=== PATIENT | female | born 1995 | race Caucasian/White ===

== ENCOUNTER → 2018-08-17 12:55 | Outpatient (CLI) | payer BC, SELFPAY ==
[2015-02-03 21:39] VITALS: BMI 42.4
--- NOTE | 2018-08-17 13:06 | RAD_ITS ---
STUDY: X-RAY CHEST REASON FOR EXAM: Female, 23 years old. Cough x1 week TECHNIQUE: PA and lateral views of the chest. COMPARISON: 2014 FINDINGS: The lungs are clear and expanded. There is no demonstrated pleural abnormality. Normal size heart. Normal mediastinum and felicia. Normal visualized pulmonary arteries. Normal visualized aortic arch and descending thoracic aorta. Normal visualized thoracic spine. Normal visualized ribs, clavicles, and shoulders. There is no demonstrated abnormality of the visualized soft tissue structures of the upper abdomen. RAD/Chest PA and Lateral IMPRESSION: Normal x-ray examination of the chest. Electronically Signed: Mohit Estes MD at 21:43 EST , Service support ,
== END ==
PROVIDERS: Family Provider Internal Medicine; PCP Internal Medicine; Referring Provider Internal Medicine; Visit Provider Internal Medicine
DX: R05 Cough (principal)
CPT/HCPCS: 71046

== ENCOUNTER → 2020-08-16 11:01 | Outpatient (CLI) | payer BC, SELFPAY ==
[2020-08-16 12:18] LABS: Absolute Lymphocyte Count 4.36 X10^3/uL (0.83-4.51); Absolute Neutrophil Count 6.6 X10^3/uL (2.0-7.7); Basophil# 0.07 X10^3/uL; Basophil% 0.6 % (0-1); Eosinophil# 0.77 X10^3/uL; Eosinophils% 6.2 % (0-5); Hematocrit 37.6 % (37-47); Hemoglobin 12.4 g/dL (12.0-15.0); Lymphocyte # 4.36 X10^3/ul (4.0); Lymphocyte % 34.9 % (19-41); Mean Corpuscular Hgb 29.2 pg (27.0-32.0); Mean Corpuscular Volume 88.7 fL (81-99); Mean Platelet Vol. 10.8 fl (6.2-12.0); Monocyte# 0.63 X10^3/uL; NRBC Flagged by Analyzer 0 % (0-5); Neutrophil # 6.62 X10^3/uL (2.7-7.7); Neutrophil % 52.9 % (47-70); Platelet Count 363 K/mm3 (150-450); RBC Distribution Width CV 13.2 % (11.6-14.6); RBC Distribution Width SD 43.2 fl (35.1-43.9); Red Blood Count 4.24 M/mm3 (4.2-5.4); White Blood Count 12.5 K/mm3 (4.4-11.0)
[2020-08-16 13:02] LABS: Hemoglobin A1c 6.7 % (3.8-5.6)
[2020-08-16 13:21] LABS: ALB/GLOB Ratio 0.8 RATIO (0.9-2.4); AST(SGOT) 18 U/L (15-37); Alanine Aminotransfer ALT/SGPT 27 U/L (13-56); Albumin, Serum 3.1 g/dL (3.2-5.0); Alkaline Phosphatase 56 U/L (45-117); Anion Gap 13 (5-15); BUN 12 mg/dL (7-18); Calcium,Total 8.8 mg/dL (8.5-10.1); Chloride 104 mmol/L (98-107); Cholesterol 176 mg/dL (200); Creatinine, Serum 0.57 mg/dL (0.55-1.02); EST Glomerular Filtration Rate 139 mL/min (>60); Est Glom Filt Rate - Afr Amer 168 mL/min (>60); Globulin 4.1 g/dL (2.2-4.2); Glucose 129 mg/dL (74-106); High Density Lipoprotein 22 mg/dL; Potassium 3.7 mmol/L (3.5-5.1); Protein, Total 7.2 g/dL (6.4-8.2); Sodium Level 136 mmol/L (136-145); Thyroid Stim Hormone (TSH) 1.98 uIU/mL (0.358-3.74); Triglycerides 1258 mg/dL
== END ==
DX: E03.9 Hypothyroidism, unspecified (principal); F64.9 Gender identity disorder, unspecified
CPT/HCPCS: 36415; 80053; 80061; 83036; 84443; 85025

== ENCOUNTER 2022-11-13 15:35 | Emergency (ER) | payer OTHER, SELFPAY ==
[2022-11-13 15:38] VITALS: BP 123/72; PULSE 104; RESP 16; TEMP 36.4; O2SAT 95; BMI 40.3
[2022-11-13 16:00] VITALS: BP 136/122; PULSE 80; RESP 14; O2SAT 95
--- NOTE | 2022-11-13 16:10 | EDS_ITS ---
HPI History of Present Illness Chief Complaint: Chest Pain Informant: patient and parent Onset/Context/Timing Onset: Weeks (2) Activity at onset: gradual Timing: Intermittent and Lasts (Approximately 10 minutes) Quality: Positive for Sharp Location: Left Chest (With radiation to the left shoulder and left jaw) Worsened By: Nothing Relieved By: Nothing Associated Symptoms: Positive for Nausea, Diaphoresis, Dyspnea, Lightheadedness and Palpitations; Negative for Vomiting, Cough, Fever or Acid Reflux Narrative Narrative: Patient presents with chest pain that has been intermittent over the last 2 weeks. Patient states that it last for approximately 10 minutes when it comes on. Patient states the pain is sharp. Patient states the pain is over the left side of her chest and radiates to the left shoulder and left jaw. Patient states nothing makes it better nothing makes it worse. Patient describes the pain as sharp. Patient admits to some nausea but denies any vomiting with it. Patient admits to some diaphoresis and shortness of breath with the pain. Patient denies any fevers or cough. Patient admits to some lightheadedness but denies any reflux symptoms. Patient admits to some palpitations with the pain. CVD Risk Factors: Positive for Family History 1' </=55; Negative for Hypertension, Diabetes, Hypercholesterolemia or Smoking PE Risk Factors: Negative for Recent Travel/Surgery, Recent Immobilization, Prior DVT or PE, Cancer or OCP + Smoking + >/=35 [facility] Medical History (Updated 11/13/22 @ 17:[address] Tra Mcqueen, DO) History of PCOS Home Medications metformin 500 mg tablet 1,000 mg PO BID 02/03/15 [History Last Taken Unknown] atorvastatin 40 mg tablet 40 mg PO DAILY 11/13/22 [History Last Taken Unknown] hydrochlorothiazide 25 mg tablet 25 mg PO DAILY 11/13/22 [History Last Taken Unknown] levothyroxine 50 mcg tablet 50 mcg PO DAILY 11/13/22 [History Last Taken Unknown] lisinopril 20 mg tablet 20 mg PO BID 11/13/22 [History Last Taken Unknown] metoprolol succinate 25 mg capsule sprinkle, ext. release 24 hr 25 mg PO DAILY 11/13/22 [History Last Taken Unknown] sertraline 100 mg tablet 100 mg PO DAILY 11/13/22 [History Last Taken Unknown] testosterone 200 mg implant pellet 200 mg subcut QWEEK 11/13/22 [History Last Taken Unknown] Allergy/AdvReac Type Severity Reaction Status Date / Time latex Allergy Other Verified 11/13/22 15:49 red dye Allergy Hives Verified 11/13/22 15:49 Surgical History H/O total hysterectomy Social History Smoking Status: Never smoker ROS ROS ED Constitutional Constitutional ED: Reports chills; Denies fever(s) Eyes Eyes: Reports blurry vision; Denies change in vision ENT ENT ED: Denies rhinorrhea or sore throat Cardiovascular Cardiovascular: Reports as per HPI, chest pain and palpitations Respiratory/Chest Respiratory/Chest: Reports dyspnea; Denies cough Gastrointestinal Gastrointestinal: Reports nausea; Denies abdominal pain or vomiting Genitourinary Genitourinary ED: Denies dysuria or hematuria Musculoskeletal Musculoskeletal: Denies back pain or neck pain Integumentary Denies abscess or rash Neurologic Neurologic: Reports headache(s); Denies weakness Allergic/Immunologic Allergic/Immunologic ED: Denies mouth swelling or urticaria EXAM Physical Exam Const Vital Signs: 11/13/22 15:38 11/13/22 15:50 11/13/22 16:00 Temperature 97.5 F L Temperature Source Temporal Pulse Rate 104 H 80 Respiratory Rate 16 14 Respiratory Effort Normal Non-Labored Blood Pressure 123/72 H 136/122 H Blood Pressure Mean 89 126 Pulse Ox 95 95 Oxygen Delivery Method Room Air Room Air 11/13/22 16:21 11/13/22 16:50 11/13/22 17:15 Temperature Temperature Source Pulse Rate 77 82 Respiratory Rate 24 H 19 H Respiratory Effort Blood Pressure 113/77 124/80 H Blood Pressure Mean 89 94 Pulse Ox 94 93 93 Oxygen Delivery Method Room Air Room Air Room Air Positive well nourished, well developed and obese General Appearance ED: well developed and NAD Nutritional Appearance: obese HEENT normocephalic and atraumatic Eyes PERRL and EOMs intact bilaterally Neck supple and no JVD Chest Wall palpation of chest normal Resp normal respiratory effort and clear to auscultation bilaterally Effort and Inspection: Negative for respiratory distress Cardio regular rate, regular rhythm and no murmurs GI normal to inspection, nondistended, normoactive bowel sounds, soft to palpation, non-tender and non-distended Extremity normal to inspection General Extremety ED: Negative for edema or tenderness General Extremity: Negative for edema Neuro oriented x3, CN's II-XII intact bilaterally and no sensory deficits noted Sensorium / Orientation: awake and alert Motor Exam: strength 5/5 throughout Psych mental status grossly normal Heart Score History: Slightly/Non-Suspicious ECG: Normal Age: </= 45 years Risk Factors: 1 or 2 Risk Factors Score: 1 MDM MDM MDM Narrative Medical decision making narrative: Gnosis includes cardiac dysrhythmia, cardiac ischemia, pulmonary embolism, pneum onia, pneumothorax, musculoskeletal pain, and anxiety. EKG will be obtained to assess for cardiac dysrhythmia and cardiac ischemia. Chest x-ray will be obtained to assess for pneumonia and pneumothorax. CBC will be obtained to assess for anemia and leukocytosis. Basic metabolic profile will be obtained to assess for electrolyte abnormality and renal function. High-sensitivity troponin will be obtained to assess for cardiac ischemia. D-dimer will be obtained to assess for pulmonary embolism. Lab Data Attestation: I reviewed the patient's lab results. Lab results narrative: CBC was reviewed. There is a slight leukocytosis of 12.5. The remainder was essentially within normal limits. Basic metabolic profile was reviewed and was essentially within normal limits. High-sensitivity troponin was reviewed and was normal. D-dimer was reviewed and was normal. Labs: Laboratory Results - last 24 hr 11/13/22 11/13/22 11/13/22 15:55 15:55 15:55 WBC 12.5 H RBC 5.23 Hgb 15.8 H Hct 46.8 MCV 89.5 MCH 30.2 MCHC 33.8 RDW Std Deviation 41.7 RDW Coeff of Luis 12.8 Plt Count 392 MPV 10.8 Immature Gran % (Auto) 0.500 Neut % (Auto) 54.2 Lymph % (Auto) 34.8 [place] % (Auto) 5.5 Eos % (Auto) 4.4 Baso % (Auto) 0.6 Absolute Neuts (auto) 6.8 Absolute Lymphs (auto) 4.34 Nucleated RBC % 0 D-Dimer Quant (PE/DVT) < 0.27 L Sodium 135 L Potassium 4.0 Chloride 102 Carbon Dioxide 26.0 Anion Gap 7 BUN 14 Creatinine 0.71 Estim Creat Clear Calc 122.19 Est GFR (MDRD) Af Amer 129 Est GFR (MDRD) Non-Af 107 BUN/Creatinine Ratio 19.8 Glucose 160 H Calcium 9.9 Troponin I High Sens 7 Radiography Diagnostic Testing: Clinical Impression(s) from Imaging Studies Chest X-Ray 11/13/22 16:25 IMPRESSION: No radiographic evidence of acute cardiopulmonary disease. Electronically Signed: Jeffery Borrero MD at 16:59 EDT Reading Location ID and State: [facility] / [place] Tel , Service support , Portable 1 view chest x-ray was obtained. On my independent interpretation, lung benson are clear. There is normal cardiac silhouette. Bony thorax is normal. There is no acute process noted. Radiologist also interpreted the x- ray and agrees. EKG Initial EKG: Attestation: I personally reviewed and interpreted this EKG as follows: Interpretation: Sinus Rhythm (85) and No Acute Injury Pattern Comments: EKG was obtained. On my independent interpretation, it showed a normal sinus rhythm with a rate of 85. VT interval, QRS interval, and QTc intervals were all normal. [place] was normal. There are no acute ST or T wave changes. Prior EKG tracings: available for review Prior: Unchanged (01/06/2015) Treatment and Re-Evaluation :: Patient was advised of her findings. Patient is feeling better on reevaluation. Patient was instructed to follow-up with her primary care physician in 5 to 7 days. Patient understood and was agreeable with the plan. All questions were answered. Discharge Plan Triage Chief Complaint: Chest Pain ED Provider: Tra Mcqueen Dx/Rx/DC Orders Clinical Impression: Chest pain of uncertain etiology, Morbid obesity with BMI of 40.0-44.9, adult Instructions: ED Chest Pain, Uncertain Cause Prescriptions: No Action metformin 500 MG tablet 1,000 mg PO BID atorvastatin 40 mg Tablet 40 mg PO DAILY lisinopril 20 mg Tablet 20 mg PO BID sertraline 100 mg Tablet 100 mg PO DAILY levothyroxine 50 mcg Tablet 50 mcg PO DAILY hydrochlorothiazide 25 mg Tablet 25 mg PO DAILY metoprolol succinate 25 mg Capsule,Sprinkle,Er 24hr 25 mg PO DAILY testosterone 200 mg Pellet 200 mg SUBCUT QWEEK Primary Care Provider: TEJAL VARGHESE Referrals: TEJAL VARGHESE [Other] - 5-7 Days [facility] Doctor,Out of [Non-Staff] - Disposition Disposition: Home, Self Care
[2022-11-13 16:21] VITALS: O2SAT 94
[2022-11-13] MEDS: Aspirin 81 MG TAB.CHEW 324 MG PO (16:23)
--- NOTE | 2022-11-13 16:25 | RAD_ITS ---
INDICATION: chest pain EXAMINATION/TECHNIQUE: X-RAY - portable upright AP chest x-ray COMPARISON: 08/17/2018 FINDINGS: LINES/DEVICES: None. LUNGS: No consolidation, edema or effusion. No pneumothorax. MEDIASTINUM AND CARDIOVASCULAR STRUCTURES: Cardiac silhouette not enlarged. Central airways and mediastinal contour are unremarkable. BONES AND SOFT TISSUES: Unremarkable. RAD/Chest 1 View (Portable) IMPRESSION: No radiographic evidence of acute cardiopulmonary disease. Electronically Signed: Jeffery Borrero MD at 16:59 EDT ,
[2022-11-13 16:39] LABS: Absolute Lymphocyte Count 4.34 X10^3/uL (0.83-4.51); Absolute Neutrophil Count 6.8 X10^3/uL (2.0-7.7); Basophil# 0.08 X10^3/uL; Basophil% 0.6 % (0-1); Eosinophil# 0.55 X10^3/uL; Eosinophils% 4.4 % (0-5); Hematocrit 46.8 % (37-47); Hemoglobin 15.8 g/dL (12.0-15.0); Lymphocyte # 4.34 X10^3/ul (0.83-4.51); Lymphocyte % 34.8 % (19-41); Mean Corp Hgb Conc 33.8 g/dL (32-36); Mean Corpuscular Hgb 30.2 pg (27.0-32.0); Mean Corpuscular Volume 89.5 fL (81-99); Mean Platelet Vol. 10.8 fl (6.2-12.0); Monocyte# 0.69 X10^3/uL; Monocyte% 5.5 % (0-10); NRBC Flagged by Analyzer 0 % (0-5); Neutrophil # 6.76 X10^3/uL (2.7-7.7); Neutrophil % 54.2 % (47-70); Platelet Count 392 K/mm3 (150-450); RBC Distribution Width CV 12.8 % (11.6-14.6); RBC Distribution Width SD 41.7 fl (35.1-43.9); Red Blood Count 5.23 M/mm3 (4.2-5.4); White Blood Count 12.5 K/mm3 (4.4-11.0)
[2022-11-13 16:50] VITALS: BP 113/77; PULSE 77; RESP 24; O2SAT 93
[2022-11-13 16:50] LABS: Anion Gap 7 (5-15); BUN 14 mg/dL (7-18); BUN/Creat Ratio 19.8 RATIO (10-20); Calcium,Total 9.9 mg/dL (8.5-10.1); Chloride 102 mmol/L (98-107); Creatinine, Serum 0.71 mg/dL (0.55-1.02); EST Glomerular Filtration Rate 107 mL/min (>60); Est Glom Filt Rate - Afr Amer 129 mL/min (>60); Estimated Creatinine Clearance 122.19 ml/min; Glucose 160 mg/dL (74-106); Sodium Level 135 mmol/L (136-145); Troponin-I HS 7 pg/mL (3.0-54.0)
[2022-11-13 16:57] LABS: D-Dimer Quantitative (DVT/PE) < 0.27 FEU/ug/m (0.27-0.49)
[2022-11-13 17:15] VITALS: BP 124/80; PULSE 82; RESP 19; O2SAT 93
[2022-11-13 18:02] VITALS: BP 118/66; PULSE 81; RESP 16; O2SAT 96
== END 2022-11-13 18:03 | disposition home or self-care (01) ==
PROVIDERS: Emergency Provider Emergency Medicine; Visit Provider Emergency Medicine
DX: R07.9 Chest pain, unspecified (principal); E66.01 Morbid (severe) obesity due to excess calories; Z68.41 Body mass index [BMI] 40.0-44.9, adult
CPT/HCPCS: 71045; 80048; 84484; 85025; 85379; 93005; 99285; A4216

== ENCOUNTER 2023-06-24 18:25 | Emergency (ER) | payer OTHER, SELFPAY ==
[2023-06-24 18:26] VITALS: BP 93/57; PULSE 102; RESP 18; TEMP 36.1; O2SAT 96; BMI 39.8
--- NOTE | 2023-06-24 21:07 | EKG12_ITS ---
Test Reason : DYSRHYTHMIA Blood Pressure : / mmHG Vent. Rate : 089 BPM Atrial Rate : 089 BPM P-R Int : 140 ms QRS Dur : 086 ms QT Int : 340 ms P-R-T Axes : 046 -12 003 degrees QTc Int : 413 ms Normal sinus rhythm Minimal voltage criteria for LVH, may be normal variant ( R in aVL ) Nonspecific T wave abnormality Abnormal ECG Confirmed by SHAYY POMPA, MARISSA ([id number]), material expeditor DANNA MOYA ([id number]) on 07/01/2023 11:50:42 AM Referred By: Confirmed By:MARISSA LUCAS MD
[2023-06-24] MEDS: 0.9% Normal Saline (1000mL) 1,000 ML 999 ML IV ×2 (21:20→23:31)
[2023-06-24 21:21] LABS: Absolute Lymphocyte Count 4.24 X10^3/uL (0.83-4.51); Absolute Neutrophil Count 13.5 X10^3/uL (2.0-7.7); Basophil% 0.5 % (0-1); Eosinophil# 0.35 X10^3/uL; Eosinophils% 1.8 % (0-5); Hematocrit 41.7 % (37-47); Hemoglobin 14.1 g/dL (12.0-15.0); Lymphocyte # 4.24 X10^3/ul (0.83-4.51); Lymphocyte % 21.7 % (19-41); Mean Corp Hgb Conc 33.8 g/dL (32-36); Mean Corpuscular Hgb 29.7 pg (27.0-32.0); Mean Corpuscular Volume 87.8 fL (81-99); Mean Platelet Vol. 11.4 fl (6.2-12.0); Monocyte# 1.28 X10^3/uL; Monocyte% 6.5 % (0-10); NRBC Flagged by Analyzer 0 % (0-5); Neutrophil # 13.52 X10^3/uL (2.7-7.7); Platelet Count 341 K/mm3 (150-450); RBC Distribution Width CV 11.8 % (11.6-14.6); RBC Distribution Width SD 37.8 fl (35.1-43.9); Red Blood Count 4.75 M/mm3 (4.2-5.4); White Blood Count 19.6 K/mm3 (4.4-11.0)
--- NOTE | 2023-06-24 21:21 | ED.VIS.DYS ---
HPI History of Present Illness Chief Complaint: Shortness of Breath Informant: patient Narrative Narrative: Patient is a 28-year-old gender female to male presenting for worsening shortness of breath and chest discomfort. He states he has been sick since Thursday, 2 days ago. This morning he started coughing up green phlegm. Denies any fever. Is having pain in his chest with breathing. This is more diffuse. No nausea, vomiting, change in appetite or abdominal urinary symptoms. Initially went to urgent care and had a negative COVID test. There is also concern for pulmonary emboli given recent travel, strong family history and the patient is on testosterone therapy. Patient reports some mild dizziness/lightheadedness. Normally has high blood pressure even being on his blood pressure medicine (lisinopril, hydrochlorothiazide and metoprolol) and does not normally have low blood pressures below 100 systolic. 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 No swelling of the legs. No other complaints or concerns at this time [facility] Medical History History of PCOS Home Medications metformin 500 mg tablet 1,000 mg PO BID 02/03/15 [History Last Taken Unknown] atorvastatin 40 mg tablet 40 mg PO DAILY 11/13/22 [History Last Taken Unknown] hydrochlorothiazide 25 mg tablet 25 mg PO DAILY 11/13/22 [History Last Taken Unknown] levothyroxine 50 mcg tablet 50 mcg PO DAILY 11/13/22 [History Last Taken Unknown] lisinopril 20 mg tablet 20 mg PO BID 11/13/22 [History Last Taken Unknown] metoprolol succinate 25 mg capsule sprinkle, ext. release 24 hr 25 mg PO DAILY 11/13/22 [History Last Taken Unknown] sertraline 100 mg tablet 100 mg PO DAILY 11/13/22 [History Last Taken Unknown] testosterone 200 mg implant pellet 200 mg subcut QWEEK 11/13/22 [History Last Taken Unknown] amoxicillin 500 mg tablet 1,000 mg (2 x 500 mg) PO Q8H 7 days #42 tabs 06/25/23 [Rx Last Taken Unknown] azithromycin 250 mg tablet 250 mg PO DAILY #4 TABLETS 06/25/23 [Rx Last Taken Unknown] hydrocodone-acetaminophen 5-325mg 5mg-325mg 1 tab PO Q8H PRN Pain 3 days #10 TABLETS 06/25/23 [Rx Last Taken Unknown] prednisone 20 mg tablet 40 mg (2 x 20 mg) PO DAILY #10 tabs 06/25/23 [Rx Last Taken Unknown] Allergy/AdvReac Type Severity Reaction Status Date / Time latex Allergy Other Verified 06/24/23 18:26 red dye Allergy Hives Verified 06/24/23 18:26 Surgical History H/O total hysterectomy Social History Smoking Status: Never smoker ROS ROS ED Constitutional Constitutional ED: Reports chills; Denies fever(s) Eyes Eyes: Denies change in vision ENT ENT ED: Reports rhinorrhea; Denies sore throat Cardiovascular Cardiovascular: Reports chest pain; Denies palpitations Respiratory/Chest Respiratory/Chest: Reports cough, dyspnea and sputum Gastrointestinal Gastrointestinal: Denies abdominal pain, nausea or vomiting Musculoskeletal Musculoskeletal: Denies arthralgias or myalgias Integumentary Denies rash Neurologic Neurologic: Reports weakness and other Details: Mild confusion per mother ; Denies headache(s) Hematologic/Lymphatic Hematologic/Lymphatic: Denies easy bleeding or easy bruising EXAM Physical Exam Const Vital Signs: 06/24/23 18:26 06/24/23 21:02 06/24/23 21:22 Temperature 97 F L Temperature Source Temporal Pulse Rate 102 H Respiratory Rate 18 Respiratory Effort Normal Non-Labored Respiratory Pattern Blood Pressure 93/57 L Blood Pressure Mean 69 Pulse Ox 96 94 Oxygen Delivery Method Room Air Room Air 06/24/23 21:24 06/24/23 23:00 Temperature Temperature Source Pulse Rate 102 H 91 Respiratory Rate 18 16 Respiratory Effort Respiratory Pattern Normal Blood Pressure 111/54 L Blood Pressure Mean 73 Pulse Ox 97 Oxygen Delivery Method Room Air Positive well nourished and well developed General Appearance ED: well developed and NAD HEENT Reports moist mucous membranes atraumatic Eyes PERRL and EOMs intact bilaterally Neck supple and no JVD Resp normal respiratory effort Resp Narrative: Coarse breath sounds with rhonchi present Auscultation: Negative for wheezes or diminished lung sounds Cardio regular rhythm and no murmurs Rate: tachycardic GI non-tender and non-distended Extremity normal to inspection General Extremety ED: Negative for edema General Extremity: Negative for edema Neuro oriented x3 Sensorium / Orientation: alert Motor Exam: Negative for general weakness Psych mental status grossly normal Skin no wounds MDM MDM MDM Narrative Medical decision making narrative: Patient is evaluated for chest pain, cough and generalized malaise. Blood pressure is soft and mildly tachycardic on arrival but no hypoxia. While pulmonary emboli is on the differential because of recent travel and family history as well as testosterone use, clinically patient appears more to have upper respiratory illness. Lab work is remarkable for significant leukocytosis of 19.6. Creatinine is mildly elevated from his baseline at 1.10. Clinically suspect he is dehydrated. Lactate is normal at 1.8. TSH is normal and so his high-sensitivity troponin. D-dimer is less than 0.27 and I do not think a CTA of the chest is indicated. Urinalysis does show 25-50 white blood cells but no bacteria. Will send for culture. Given how high the white blood cell count and the symptoms I am concerned there could be an infection that I am missing at this point. CT of the chest abdomen pelvis is ordered as patient is continue to some continued pain to the level of the diaphragm and is not clear if it is above or below the diaphragm. CT of the chest abdomen pelvis does show developing pneumonia on the left side. This does match the patient's clinical picture. Patient is given a total of 2 L of IV fluid with improvement of blood pressure and heart rate. Is also given Tylenol in the ER. He has coarse breath sounds and given a DuoNeb with improvement of his breathing. Patient is started on azithromycin and amoxicillin to cover for commune acquired pneumonia. I will also start the patient on steroids (prednisone) for the wheezing. Has albuterol at home as inhaler as well as nebulizer. Encouraged to use it. Given return precautions encouraged follow-up with primary care doctor. Patient apparently had a negative COVID test at well now prior to arrival so this was not repeated. Patient and family agreeable with plan of care. Patient discharged home in stable and improved condition. Ambulated in the ER with no hypoxia. Patient is requesting something for pain. Has avoided NSAIDs because of GI issues. Will be given a prescription for [place] and given 1 dose prior to discharge. Lab Data Attestation: I reviewed the patient's lab results. Labs: Laboratory Results - last 24 hr 06/24/23 06/24/23 06/24/23 20:22 21:15 22:36 WBC 19.6 H RBC 4.75 Hgb 14.1 Hct 41.7 MCV 87.8 MCH 29.7 MCHC 33.8 RDW Std Deviation 37.8 RDW Coeff of Luis 11.8 Plt Count 341 MPV 11.4 Immature Gran % (Auto) 0.500 Neut % (Auto) 69.0 Lymph % (Auto) 21.7 [place] % (Auto) 6.5 Eos % (Auto) 1.8 Baso % (Auto) 0.5 Absolute Neuts (auto) 13.5 H Absolute Lymphs (auto) 4.24 Nucleated RBC % 0 D-Dimer Quant (PE/DVT) < 0.27 L Sodium 136 Potassium 3.8 Chloride 100 Carbon Dioxide 28.0 Anion Gap 8 BUN 15 Creatinine 1.10 H Estim Creat Clear Calc 78.18 Est GFR (MDRD) Af Amer 77 Est GFR (MDRD) Non-Af 64 BUN/Creatinine Ratio 13.6 Glucose 125 H Lactic Acid 1.8 Calcium 9.6 Troponin I High Sens 6 TSH 1.94 Urine Color Yellow Urine Clarity Sl. Cloudy Urine pH 6.0 Ur Specific [place] 1.020 Urine Protein 100 H Urine Glucose (UA) Normal Urine Ketones 5 H Urine Occult Blood 10 H Urine Nitrite Negative Urine Bilirubin 1 H Urine Urobilinogen Normal Ur Leukocyte Esterase 500 H Urine RBC 0 SEEN Urine WBC 25-50 SEEN Ur Squamous Epith Cells 0-5 SEEN Urine Bacteria 0 SEEN Urine Mucus 1+ Radiography Chest X-Ray - ED: 2 View, Read by ED Physician, Read by Radiologist and No Acute Disease Diagnostic Testing: Clinical Impression(s) from Imaging Studies Chest X-Ray 06/24/23 21:45 IMPRESSION: Normal x-ray examination of the chest. Electronically Signed: Thai Ballesteros MD at 22:06 EST , Chest/Abdomen/Pelvis CT 06/24/23 23:11 IMPRESSION: Normal enhanced CT chest, abdomen T pelvis examination. Electronically Signed: Sebastián Sanders MD at 0:39 EST , ADDENDUM: 06/25/2349 IMPRESSION: undefined ADDENDUM: 06/25/23100 IMPRESSION: undefined Rhythm Strip Rhythm Strip: Sinus Rhythm Rate: 89 Ectopy: None EKG Initial EKG: Attestation: I personally reviewed and interpreted this EKG as follows: Interpretation: Sinus Rhythm Comments: Normal sinus rhythm at a rate of 89 bpm Left axis deviation Minimal voltage criteria for LVH Normal ST segments Prior EKG tracings: available for review Prior: Unchanged Discharge Plan Triage Chief Complaint: Shortness of Breath ED Provider: Madison Downing Dx/Rx/DC Orders Clinical Impression: Pneumonia involving left lung, Leukocytosis, Dehydration Instructions: ED Dehydration (Adult), ED Pneumonia (Adult) Prescriptions: New azithromycin 250 mg tablet 250 mg PO DAILY Qty: 4 0RF amoxicillin 500 mg tablet 1,000 mg PO Q8H 7 Days Qty: 42 0RF prednisone 20 mg tablet 40 mg PO DAILY Qty: 10 0RF hydrocodone-acetaminophen 5-325 mg tablet 1 tab PO Q8H PRN (Reason: Pain) 3 Days Qty: 10 0RF No Action metformin 500 MG tablet 1,000 mg PO BID atorvastatin 40 mg Tablet 40 mg PO DAILY lisinopril 20 mg Tablet 20 mg PO BID sertraline 100 mg Tablet 100 mg PO DAILY levothyroxine 50 mcg Tablet 50 mcg PO DAILY hydrochlorothiazide 25 mg Tablet 25 mg PO DAILY metoprolol succinate 25 mg Capsule,Sprinkle,Er 24hr 25 mg PO DAILY testosterone 200 mg Pellet 200 mg SUBCUT QWEEK Primary Care Provider: Connor Tripp Referrals: NOT,DEFINED [Non-Staff] - Activity Restrictions/Additional Instructions: Your CT does show pneumonia in the left side of the lung. You have signs of dehydration. We will start you on steroids as well as antibiotics as I suspect having a component of reactive airway for this pneumonia. Been given a prescription for short course of pain medicine to help with the pain as you are avoiding anti-inflammatories such as ibuprofen. If your blood pressure is below 110 for the top number please hold your hydrochlorothiazide to prevent low blood pressures. Make sure you are drinking plenty of fluids. Follow-up with your primary care doctor within a week for repeat evaluation. Disposition Disposition: Home, Self Care
[2023-06-24 21:22] VITALS: O2SAT 94
[2023-06-24 21:24] VITALS: PULSE 102; RESP 18
[2023-06-24] MEDS: Ipratropium/Albuterol Sulfate 3 ML AMPUL.NEB INHALATION (21:24)
[2023-06-24 21:45] LABS: Anion Gap 8 (5-15); BUN 15 mg/dL (7-18); BUN/Creat Ratio 13.6 RATIO (10-20); Calcium,Total 9.6 mg/dL (8.5-10.1); Chloride 100 mmol/L (98-107); EST Glomerular Filtration Rate 64 mL/min (>60); Est Glom Filt Rate - Afr Amer 77 mL/min (>60); Estimated Creatinine Clearance 78.18 ml/min; Glucose 125 mg/dL (74-106); Potassium 3.8 mmol/L (3.5-5.1); Sodium Level 136 mmol/L (136-145); Thyroid Stim Hormone (TSH) 1.94 uIU/mL (0.358-3.74); Troponin-I HS 6 pg/mL (3.0-54.0)
--- NOTE | 2023-06-24 21:45 | RAD_ITS ---
STUDY: X-RAY CHEST REASON FOR EXAM: Female, 28 years old. sob TECHNIQUE: Frontal and lateral views of the chest. COMPARISON: 11/13/2022. FINDINGS: The lungs are clear and expanded. There is no demonstrated pleural abnormality. Normal size heart. Normal mediastinum and felicia. Normal visualized pulmonary arteries. Normal visualized aortic arch and descending thoracic aorta. Normal visualized thoracic spine. Normal visualized ribs, clavicles, and shoulders. There is no demonstrated abnormality of the visualized soft tissue structures of the upper abdomen. RAD/Chest PA and Lateral IMPRESSION: Normal x-ray examination of the chest. Electronically Signed: Thai Ballesteros MD at 22:06 EST ,
[2023-06-24 21:53] LABS: D-Dimer Quantitative (DVT/PE) < 0.27 FEU/ug/m (0.27-0.49)
[2023-06-24 21:59] LABS: Lactic Acid 1.8 mmol/L (0.4-1.9)
[2023-06-24 22:40] LABS: Bacteria 0 SEEN /hpf (None Seen); Red Blood Cells-Urine 0 SEEN /hpf (0-5)
[2023-06-24 22:46] LABS: Color, Urine Yellow (Yellow); Glucose, Dipstick Normal (Normal); Ketone-Dipstick 5 mg/dl (Negative); Leukocyte Esterase-Dipstick 500 /ul (Negative); Nitrite-Dipstick Negative (Negative); Occult Blood-Urine 10 /ul (Negative); Protein-Dipstick 100 mg/dl (Negative); Urine Clarity Sl. Cloudy (Clear); Urine Urobilinogen Normal (Normal)
[2023-06-24 22:47] LABS: Urine Bilirubin Dipstick 1 mg/dL (Negative)
[2023-06-24 22:51] LABS: White Blood Cells 25-50 SEEN /hpf (0-5)
[2023-06-24 22:52] LABS: Mucous, Urine 1+ /hpf (<or=2+); Squamous Epithelial Cells - UA 0-5 SEEN /hpf (5-10)
[2023-06-24 23:00] VITALS: BP 111/54; PULSE 91; RESP 16; O2SAT 97
--- NOTE | 2023-06-24 23:11 | CT_ITS ---
STUDY: CT CHEST, ABDOMEN T PELVIS WITH CONTRAST REASON FOR EXAM: Female, 28 years old. fever, pain RADIATION DOSAGE (If Supplied By Facility): CTDIvol = ( 23.21 ) mGy, DLP = ( 2591.85 ) mGycm TECHNIQUE: Transaxial imaging was performed following intravenous administration of IV 100mL Isovue-370. Individualized dose optimization techniques were used for this CT. COMPARISON: CR ChestNov 2022 FINDINGS: CHEST The lungs are normal. There is no demonstrated pleural abnormality. Normal heart and pericardium. Normal mediastinum. Normal hilar regions. Normal unenhanced pulmonary arteries. Normal aorta arch and descending thoracic aorta. Normal osseous structures. There is no demonstrated abnormality of the visualized upper abdomen. ABDOMEN The visualized lung bases are unremarkable. The visualized portions of the heart are within normal limits. Normal liver. Normal gallbladder and extrahepatic biliary system. Normal spleen. Normal pancreas. Normal bilateral adrenal glands. Normal right kidney. Normal left kidney. Normal visualized stomach. Normal small intestine. Normal colon. The appendix is visualized and appears normal. Normal abdominal aorta. Normal inferior vena cava. Normal retroperitoneum. Normal abdominal wall. Normal osseous structures. PELVIS Normal urinary bladder. Normal visualized small intestine. Normal visualized colon. There is no pelvic fluid. There is no pelvic lymphadenopathy or mass lesion. Normal visualized pelvic arteries. Normal abdominal wall. Normal osseous structures. CT/CT Chest, Abd, Pel w/Contrast IMPRESSION: Normal enhanced CT chest, abdomen T pelvis examination. Electronically Signed: Sebastián Sanders MD at 0:39 EST ,
[2023-06-24] MEDS: Acetaminophen 325 MG Tablet 650 MG PO (23:31)
[2023-06-25] MEDS: AMOXICILLIN 500 MG CAPSULE 1000 MG PO (01:07)
[2023-06-25] MEDS: Azithromycin 250 MG Tablet 500 MG PO (01:07)
[2023-06-25] MEDS: HYDROcodone Bitartrate/Apap 5/325 Tablet PO (01:19)
[2023-06-25 01:24] VITALS: BP 105/59; PULSE 79; RESP 16; O2SAT 98
== END 2023-06-25 01:25 | disposition home or self-care (01) ==
PROVIDERS: Emergency Provider Emergency Medicine; PCP Family Medicine; Visit Provider Emergency Medicine
DX: J18.9 Pneumonia, unspecified organism (principal); D72.829 Elevated white blood cell count, unspecified; E86.0 Dehydration; R42 Dizziness and giddiness; R07.9 Chest pain, unspecified; R05.9 Cough, unspecified; R53.1 Weakness
CPT/HCPCS: 71046; 71260; 74177; 80048; 81001; 83605; 84443; 84484; 85025; 85379; 87086; 87088; 93005; 94640; 96360; 96361; 99285; J7030; J7050; Q9967; A4216

== ENCOUNTER 2023-07-07 16:25 | Emergency (ER) | payer OTHER, SELFPAY ==
[2023-07-07 16:26] VITALS: BP 120/58; PULSE 89; RESP 18; TEMP 35.9; O2SAT 97; BMI 40.7
--- NOTE | 2023-07-07 17:19 | RAD_ITS ---
STUDY: X-RAY CHEST REASON FOR EXAM: Female, 28 years old. SOB TECHNIQUE: AP portable COMPARISON: None. FINDINGS: The lungs are clear and expanded. There is no demonstrated pleural abnormality. Normal size heart. Normal mediastinum and felicia. Normal visualized pulmonary arteries. Normal visualized aortic arch and descending thoracic aorta. Normal visualized thoracic spine. Normal visualized ribs, clavicles, and shoulders. There is no demonstrated abnormality of the visualized soft tissue structures of the upper abdomen. RAD/Chest 1 View (Portable) IMPRESSION: Normal x-ray examination of the chest. Electronically Signed: Hayden Urena MD at 18:01 EST ,
--- NOTE | 2023-07-07 17:33 | EKG12_ITS ---
Test Reason : Blood Pressure : / mmHG Vent. Rate : 071 BPM Atrial Rate : 071 BPM P-R Int : 144 ms QRS Dur : 092 ms QT Int : 354 ms P-R-T Axes : 035 -02 006 degrees QTc Int : 384 ms Normal sinus rhythm Minimal voltage criteria for LVH, may be normal variant ( R in aVL ) Nonspecific T wave abnormality Abnormal ECG Confirmed by SHAYY POMPA, MARISSA ([id number]), editorial writer TALAT PUTNAM ([id number]) on 07/09/2023 9:19:14 AM Referred By: Confirmed By:MARISSA LUCAS MD
--- NOTE | 2023-07-07 17:34 | EX.ED.DYSGE1 ---
HPI History of Present Illness Chief Complaint: General Illness Informant: patient and family Narrative Narrative: Patient presents with just not feeling completely well yet. He was here almost 2 weeks ago. He had extensive workup that ended up diagnosing him with pneumonia. He took azithromycin and amoxicillin. He has finished those. He is coughing his last. But he still feels a little short of breath. He feels lightheaded and just generalized weakness. He has a nonspecific intermittent dizziness. No vertigo. No focal neurologic symptoms. He does have a history of asthma but is not sure if he has been wheezing. However, when he takes his aerosol he does feel better for a while. He denies being on prednisone recently. However, when I look up his med list he did get prednisone filled on the of this month at 40 mg. [facility] Medical History History of PCOS Home Medications metformin 500 mg tablet 1,000 mg PO BID 02/03/15 [History Last Taken Unknown] atorvastatin 40 mg tablet 40 mg PO DAILY 11/13/22 [History Last Taken Unknown] hydrochlorothiazide 25 mg tablet 25 mg PO DAILY 11/13/22 [History Last Taken Unknown] levothyroxine 50 mcg tablet 50 mcg PO DAILY 11/13/22 [History Last Taken Unknown] lisinopril 20 mg tablet 20 mg PO BID 11/13/22 [History Last Taken Unknown] metoprolol succinate 25 mg capsule sprinkle, ext. release 24 hr 25 mg PO DAILY 11/13/22 [History Last Taken Unknown] sertraline 100 mg tablet 100 mg PO DAILY 11/13/22 [History Last Taken Unknown] testosterone 200 mg implant pellet 200 mg subcut QWEEK 11/13/22 [History Last Taken Unknown] amoxicillin 500 mg tablet 1,000 mg (2 x 500 mg) PO Q8H 7 days #42 tabs 06/25/23 [Rx Last Taken Unknown] azithromycin 250 mg tablet 250 mg PO DAILY #4 TABLETS 06/25/23 [Rx Last Taken Unknown] hydrocodone-acetaminophen 5-325mg 5mg-325mg 1 tab PO Q8H PRN Pain 3 days #10 TABLETS 06/25/23 [Rx Last Taken Unknown] prednisone 20 mg tablet 40 mg (2 x 20 mg) PO DAILY #10 tabs 06/25/23 [Rx Last Taken Unknown] sulfamethoxazole 800 mg-trimethoprim 160 mg tablet (Bactrim DS) 1 tab PO BID #20 tabs 07/07/23 [Rx Last Taken Unknown] Allergy/AdvReac Type Severity Reaction Status Date / Time latex Allergy Other Verified 07/07/23 16:26 red dye Allergy Hives Verified 07/07/23 16:26 Surgical History H/O total hysterectomy Social History Smoking Status: Never smoker ROS ROS ED ROS Narrative A complete review of systems was performed and is negative except as documented in the history of present illness. Some specific details below. Constitutional: No recent fevers or chills. He states he never had a fever with his illness. He did have malaise and myalgias that he still has some of that. EYE: No discharge, visual complaints, or pain. ENT: No difficulty swallowing. No swelling. No pain. No reflux symptoms. CV: Not having chest pain. No palpitations. Respiratory: See history of present illness. GI: No abdominal pain. No nausea vomiting diarrhea. No blood in stool. Appetite was down but he is eating and drinking. He is trying to drink fluids. : No frequency dysuria or hematuria. He does describe some soreness in the left flank area but it also seems to be motion related. Musculoskeletal: No recent trauma. No pains. No swelling. Skin: No rash. Nondiaphoretic. Neuro: No weakness or numbness. Endocrine: No polyuria or polydipsia. EXAM Physical Exam Narrative Exam Narrative: CONSTITUTIONAL: Patient is nontoxic in appearance. The patient looks comfortable. Work of breathing looks normal. HEENT: No notable trauma. Mucous membranes minute related by. No sinus tenderness. No indication of pain with swallowing. EYES: No conjunctival injection. No proptosis. No icterus NECK:No JVD. No stridor. CARDIOVASCULAR: Regular rate. Regular rhythm. No notable murmur. No JVD. No ectopy is noted on the monitor. RESPIRATORY: No respiratory distress. Breathing is unlabored. No wheezes. No rhonchi. No rales. No pain with a deep breath. No chest wall tenderness. Overall his pulmonary exam seems pretty normal at this point. GASTROINTESTINAL: Not distended. Bowel sounds are normal. No tenderness. No guarding. No rebound. No palpable mass. No bruit is heard. GENITOURINARY: No tenderness over the bladder. No CVA tenderness. MUSCULOSKELETAL: Atraumatic. No peripheral edema. No cord. No tenderness along the deep venous system. No asymmetry. No distended veins. NEUROLOGICAL: Patient is alert and appropriate. No focal deficit noted. SKIN: No noted rashes. No diaphoresis. PSYCHIATRIC: Patient is calm. Mood is appropriate. Const Vital Signs: 07/07/23 16:26 07/07/23 18:02 07/07/23 18:02 Temperature 96.7 F L Temperature Source Temporal Pulse Rate 89 Respiratory Rate 18 Respiratory Effort Normal Non-Labored Respiratory Pattern Normal Blood Pressure 120/58 L Blood Pressure Mean 78 Pulse Ox 97 98 Oxygen Delivery Method Room Air Room Air 07/07/23 19:00 Temperature Temperature Source Pulse Rate 77 Respiratory Rate 16 Respiratory Effort Respiratory Pattern Blood Pressure Blood Pressure Mean Pulse Ox 99 Oxygen Delivery Method Room Air MDM MDM MDM Narrative Medical decision making narrative: My independent interpretation of the patient's single view chest x-ray shows no acute infiltrative process final reading is similar. Patient's CBC shows elevated white count although it is coming down it still up above normal. Patient's electrolytes show minimally low sodium and minimally elevated creatinine. There is a slight elevation of glucose at 184. Alysis does show cloudy urine with 500 leukocyte Estrace and 25-50 white cells. I talked with the patient about the UTI. He is now saying he is not surprised because he is now saying he does have symptoms of been going on for few days. There is no CVA tenderness although there is some soreness in the left flank. Patient was on amoxicillin and azithromycin recently. We will use Bactrim and I will send a culture. We discussed reasons to return. Lab Data Attestation: I reviewed the patient's lab results. Labs: Laboratory Results - last 24 hr 07/07/23 07/07/23 17:50 18:49 WBC 14.0 H RBC 4.82 Hgb 14.5 Hct 42.7 MCV 88.6 MCH 30.1 MCHC 34.0 RDW Std Deviation 38.5 RDW Coeff of Luis 11.9 Plt Count 339 MPV 10.6 Immature Gran % (Auto) 0.400 Neut % (Auto) 63.0 Lymph % (Auto) 29.3 Denali % (Auto) 4.3 Eos % (Auto) 2.3 Baso % (Auto) 0.7 Absolute Neuts (auto) 8.8 H Absolute Lymphs (auto) 4.09 Nucleated RBC % 0 Sodium 133 L Potassium 4.1 Chloride 100 Carbon Dioxide 25.0 Anion Gap 8 BUN 22 H Creatinine 1.09 H Estim Creat Clear Calc 78.90 Est GFR (MDRD) Af Amer 78 Est GFR (MDRD) Non-Af 64 BUN/Creatinine Ratio 20.2 H Glucose 184 H Calcium 9.7 Urine Color Yellow Urine Clarity Sl. Cloudy Urine pH 5.0 Ur Specific Chapin 1.020 Urine Protein 30 H Urine Glucose (UA) Normal Urine Ketones 5 H Urine Occult Blood 10 H Urine Nitrite Negative Urine Bilirubin 1 H Urine Urobilinogen 1 H Ur Leukocyte Esterase 500 H Urine RBC 0 SEEN Urine WBC 25-50 SEEN Ur Squamous Epith Cells 0-5 SEEN Ur Renal Epithelial Cell 0-5 SEEN Urine Bacteria 0 SEEN Hyaline Casts 10-25 SEEN Urine Mucus 0 SEEN Radiography Diagnostic Testing: Clinical Impression(s) from Imaging Studies Chest X-Ray 07/07/23 17:19 IMPRESSION: Normal x-ray examination of the chest. Electronically Signed: Hayden Urena MD at 18:01 EST , EKG Initial EKG: Comments: My independent interpretation the patient's EKG shows a normal sinus rhythm with overall rate of 71. No ectopy. Nonspecific ST changes but these are similar to 24 June of this year. MD interval, QRS duration and QTc are all normal. Discharge Plan Triage Chief Complaint: General Illness ED Provider: Leo Patterson Dx/Rx/DC Orders Clinical Impression: UTI (urinary tract infection) Instructions: UTIs Understanding Prescriptions: New sulfamethoxazole-trimethoprim [Bactrim DS] 800-160 mg tablet 1 tab PO BID Qty: 20 0RF No Action metformin 500 MG tablet 1,000 mg PO BID atorvastatin 40 mg Tablet 40 mg PO DAILY lisinopril 20 mg Tablet 20 mg PO BID sertraline 100 mg Tablet 100 mg PO DAILY levothyroxine 50 mcg Tablet 50 mcg PO DAILY hydrochlorothiazide 25 mg Tablet 25 mg PO DAILY metoprolol succinate 25 mg Capsule,Sprinkle,Er 24hr 25 mg PO DAILY testosterone 200 mg Pellet 200 mg SUBCUT QWEEK azithromycin 250 mg tablet 250 mg PO DAILY Qty: 4 0RF amoxicillin 500 mg tablet 1,000 mg PO Q8H 7 Days Qty: 42 0RF prednisone 20 mg tablet 40 mg PO DAILY Qty: 10 0RF hydrocodone-acetaminophen 5-325 mg tablet 1 tab PO Q8H PRN (Reason: Pain) 3 Days Qty: 10 0RF Stand Alone Forms: ED Work / School Excuse Primary Care Provider: Care Physician,No Primary Referrals: Connor Tripp MD [Non-Staff] - 3-5 Days Disposition Disposition: Home, Self Care
[2023-07-07] MEDS: 0.9% Normal Saline (1000mL) 1,000 ML 999 ML IV (17:56)
[2023-07-07 17:58] LABS: Absolute Lymphocyte Count 4.09 X10^3/uL (0.83-4.51); Absolute Neutrophil Count 8.8 X10^3/uL (2.0-7.7); Basophil% 0.7 % (0-1); Eosinophil# 0.32 X10^3/uL; Eosinophils% 2.3 % (0-5); Hematocrit 42.7 % (37-47); Hemoglobin 14.5 g/dL (12.0-15.0); Lymphocyte # 4.09 X10^3/ul (0.83-4.51); Lymphocyte % 29.3 % (19-41); Mean Corpuscular Hgb 30.1 pg (27.0-32.0); Mean Corpuscular Volume 88.6 fL (81-99); Mean Platelet Vol. 10.6 fl (6.2-12.0); Monocyte% 4.3 % (0-10); NRBC Flagged by Analyzer 0 % (0-5); Neutrophil # 8.81 X10^3/uL (2.7-7.7); Platelet Count 339 K/mm3 (150-450); RBC Distribution Width CV 11.9 % (11.6-14.6); RBC Distribution Width SD 38.5 fl (35.1-43.9); Red Blood Count 4.82 M/mm3 (4.2-5.4)
[2023-07-07 18:02] VITALS: O2SAT 98
[2023-07-07 18:11] LABS: Anion Gap 8 (5-15); BUN 22 mg/dL (7-18); BUN/Creat Ratio 20.2 RATIO (10-20); Calcium,Total 9.7 mg/dL (8.5-10.1); Chloride 100 mmol/L (98-107); Creatinine, Serum 1.09 mg/dL (0.55-1.02); EST Glomerular Filtration Rate 64 mL/min (>60); Est Glom Filt Rate - Afr Amer 78 mL/min (>60); Glucose 184 mg/dL (74-106); Potassium 4.1 mmol/L (3.5-5.1); Sodium Level 133 mmol/L (136-145)
[2023-07-07 18:54] LABS: Bacteria 0 SEEN /hpf (None Seen); Mucous, Urine 0 SEEN /hpf (<or=2+); Red Blood Cells-Urine 0 SEEN /hpf (0-5)
[2023-07-07 18:55] LABS: Color, Urine Yellow (Yellow); Glucose, Dipstick Normal (Normal); Ketone-Dipstick 5 mg/dl (Negative); Leukocyte Esterase-Dipstick 500 /ul (Negative); Nitrite-Dipstick Negative (Negative); Occult Blood-Urine 10 /ul (Negative); Protein-Dipstick 30 mg/dl (Negative); Urine Clarity Sl. Cloudy (Clear); Urine Urobilinogen 1 mg/dl (Normal)
[2023-07-07 18:57] LABS: Urine Bilirubin Dipstick 1 mg/dL (Negative)
[2023-07-07 19:00] VITALS: PULSE 77; RESP 16; O2SAT 99
[2023-07-07 19:09] LABS: Hyaline Cast 10-25 SEEN /lpf (0-5); Renal Epithelial Cells 0-5 SEEN /hpf (0-5); Squamous Epithelial Cells - UA 0-5 SEEN /hpf (5-10); White Blood Cells 25-50 SEEN /hpf (0-5)
[2023-07-07] MEDS: Smz/Tmp Ds Tablet 1 TABLET PO (19:48)
[2023-07-07 19:51] VITALS: BP 104/69; PULSE 91; RESP 16; O2SAT 98
== END 2023-07-07 19:51 | disposition home or self-care (01) ==
PROVIDERS: Emergency Provider Emergency Medicine; Visit Provider Emergency Medicine
DX: N39.0 Urinary tract infection, site not specified (principal)
CPT/HCPCS: 71045; 80048; 81001; 85025; 87086; 87088; 87428; 93005; 96360; 96361; 99284; J7030; A4216

== ENCOUNTER 2023-07-31 15:30 | Emergency (ER) | payer OTHER, SELFPAY ==
[2023-07-31 15:31] VITALS: BP 135/79; PULSE 96; RESP 15; TEMP 36.7; O2SAT 96; BMI 41.0
--- NOTE | 2023-07-31 15:37 | RAD_ITS ---
STUDY: X-RAY CHEST REASON FOR EXAM: Female, 28 years old. SOB TECHNIQUE: PA and lateral views of the chest. COMPARISON: Comparison is made with prior study July 07, 2023. FINDINGS: The lungs are clear and expanded. Scattered calcified granulomas. There is no demonstrated pleural abnormality. Normal size heart. Normal mediastinum and felicia. Normal visualized pulmonary arteries. Normal visualized aortic arch and descending thoracic aorta. Normal visualized thoracic spine. Normal visualized ribs, clavicles, and shoulders. There is no demonstrated abnormality of the visualized soft tissue structures of the upper abdomen. RAD/Chest PA and Lateral IMPRESSION: Normal x-ray examination of the chest. Electronically Signed: Fernando Kim MD at 15:49 EST ,
--- NOTE | 2023-07-31 16:37 | EX.ED.DYSGE1 ---
HPI History of Present Illness Chief Complaint: Shortness of Breath Narrative Narrative: 28-year-old female who identifies as a male has been sick for over a month. She was seen here at that time and had a CT scan performed of the abdomen pelvis which showed no occult pneumonia. He has been on antibiotics since then. He is allergy has been on more than 1 dose of antibiotics. The patient is continually tried to call her PCP at [facility] and is referred to the emergency room every time. The patient states that his fevers are gone. The patient is not coughing up any sputum. The patient is eating and drinking normally. He is making normal urine and stool. The patient states that her biggest symptom is dizziness and when she describes as he states the room starts spinning. At times she is just sitting there and the room started spinning and other times is worse when he stands up. The patient gets nauseous when this happens and feels like she is may be going to faint. The patient states that he feels like his fingertips turn blue when this happens. No history of heart disease. No pulmonary problems. [facility] Medical History History of PCOS Home Medications metformin 500 mg tablet 1,000 mg PO BID 02/03/15 [History Last Taken Unknown] atorvastatin 40 mg tablet 40 mg PO DAILY 11/13/22 [History Last Taken Unknown] hydrochlorothiazide 25 mg tablet 25 mg PO DAILY 11/13/22 [History Last Taken Unknown] levothyroxine 50 mcg tablet 50 mcg PO DAILY 11/13/22 [History Last Taken Unknown] lisinopril 20 mg tablet 20 mg PO BID 11/13/22 [History Last Taken Unknown] metoprolol succinate 25 mg capsule sprinkle, ext. release 24 hr 25 mg PO DAILY 11/13/22 [History Last Taken Unknown] sertraline 100 mg tablet 100 mg PO DAILY 11/13/22 [History Last Taken Unknown] testosterone 200 mg implant pellet 200 mg subcut QWEEK 11/13/22 [History Last Taken Unknown] amoxicillin 500 mg tablet 1,000 mg (2 x 500 mg) PO Q8H 7 days #42 tabs 06/25/23 [Rx Last Taken Unknown] azithromycin 250 mg tablet 250 mg PO DAILY #4 TABLETS 06/25/23 [Rx Last Taken Unknown] hydrocodone-acetaminophen 5-325mg 5mg-325mg 1 tab PO Q8H PRN Pain 3 days #10 TABLETS 06/25/23 [Rx Last Taken Unknown] prednisone 20 mg tablet 40 mg (2 x 20 mg) PO DAILY #10 tabs 06/25/23 [Rx Last Taken Unknown] sulfamethoxazole 800 mg-trimethoprim 160 mg tablet (Bactrim DS) 1 tab PO BID #20 tabs 07/07/23 [Rx Last Taken Unknown] meclizine 25 mg tablet 25 mg PO TID PRN dizziness #30 tabs 07/31/23 [Rx Last Taken Unknown] Allergy/AdvReac Type Severity Reaction Status Date / Time latex Allergy Other Verified 07/31/23 15:33 red dye Allergy Hives Verified 07/31/23 15:33 Surgical History H/O total hysterectomy Social History Smoking Status: Never smoker ROS ROS ED Constitutional Constitutional ED: Denies chills, fever(s) or sweats Eyes Eyes: Reports other Details: Vertiginous dizziness ; Denies blurry vision or change in vision ENT ENT ED: Reports other; Denies ear pain or sore throat Cardiovascular Cardiovascular: Denies chest pain, palpitations or racing heartbeat Respiratory/Chest Respiratory/Chest: Denies cough, dyspnea or sputum Gastrointestinal Gastrointestinal: Reports nausea; Denies abdominal pain, constipation, diarrhea or vomiting Genitourinary Genitourinary ED: Denies dysuria, hematuria or urinary frequency Musculoskeletal Musculoskeletal: Denies arthralgias, myalgias or neck pain Integumentary Denies abscess, Abrasions or rash Neurologic Neurologic: Denies headache(s), paresthesias or weakness Psychiatric Psychiatric: Denies anxiety, depression, suicidal ideation or suicidal thoughts Endocrine Endocrinology: Denies polydipsia or polyuria EXAM Physical Exam Const Vital Signs: 07/31/23 15:31 07/31/23 15:55 07/31/23 18:00 Temperature 98.0 F Temperature Source Temporal Pulse Rate 96 64 Respiratory Rate 15 14 Respiratory Effort Short of Breath Respiratory Depth Normal Respiratory Pattern Normal Blood Pressure 135/79 H 134/78 H Blood Pressure Mean 97 96 Pulse Ox 96 98 Oxygen Delivery Method Room Air Room Air Room Air Positive well nourished General Appearance ED: NAD; Negative for pallor HEENT Reports moist mucous membranes Eyes PERRL and EOMs intact bilaterally Neck no lymphadenopathy Chest Wall inspection of chest normal Resp normal respiratory effort and clear to auscultation bilaterally Auscultation: Negative for rales, rhonchi or wheezes Cardio regular rate and regular rhythm GI normal to inspection, nondistended, normoactive bowel sounds Neuro oriented x3 and CN's II-XII intact bilaterally Sensorium / Orientation: alert Motor Exam: strength 5/5 throughout Psych mental status grossly normal Skin no rashes or lesions noted and no wounds General Skin Exam: Negative for jaundice or pallor MDM MDM MDM Narrative Medical decision making narrative: Patient presenting with symptoms of vertigo. He has not had this in the past. He is positive Hart-Hallpike and nystagmus is noted. It is all reproducible. Lungs are clear to auscultation bilaterally. Vital signs are stable and he is afebrile. I do not believe he needs any blood work or imaging at this time. We will give him meclizine and Phenergan and reevaluate him. Chest x-ray my interpretation shows no acute process. Radiologist services and agrees. Patient feels better after being treated for vertigo which seems to be the main symptom. Will discharge the patient home with meclizine. Return precautions discussed. Impression: 1. Benign positional vertigo Radiography Diagnostic Testing: Clinical Impression(s) from Imaging Studies Chest X-Ray 07/31/23 15:37 IMPRESSION: Normal x-ray examination of the chest. Electronically Signed: Fernando Kim MD at 15:49 EST , Discharge Plan Triage Chief Complaint: Shortness of Breath ED Provider: Roverto Taylor Dx/Rx/DC Orders Instructions: BPPV Prescriptions: New meclizine 25 mg tablet 25 mg PO TID PRN (Reason: dizziness) Qty: 30 0RF No Action metformin 500 MG tablet 1,000 mg PO BID atorvastatin 40 mg Tablet 40 mg PO DAILY lisinopril 20 mg Tablet 20 mg PO BID sertraline 100 mg Tablet 100 mg PO DAILY levothyroxine 50 mcg Tablet 50 mcg PO DAILY hydrochlorothiazide 25 mg Tablet 25 mg PO DAILY metoprolol succinate 25 mg Capsule,Sprinkle,Er 24hr 25 mg PO DAILY testosterone 200 mg Pellet 200 mg SUBCUT QWEEK sulfamethoxazole-trimethoprim [Bactrim DS] 800-160 mg tablet 1 tab PO BID Qty: 20 0RF azithromycin 250 mg tablet 250 mg PO DAILY Qty: 4 0RF amoxicillin 500 mg tablet 1,000 mg PO Q8H 7 Days Qty: 42 0RF prednisone 20 mg tablet 40 mg PO DAILY Qty: 10 0RF hydrocodone-acetaminophen 5-325 mg tablet 1 tab PO Q8H PRN (Reason: Pain) 3 Days Qty: 10 0RF Primary Care Provider: Connor Keller MD Referrals: Connor Keller MD [Other] Abdullahi Garcia MD [Med Staff - Active Staff] - 3-5 Days Disposition Disposition: Home, Self Care Discharge Date/Time: 07/31/23 18:20
[2023-07-31] MEDS: Meclizine HCl 25 MG Tablet PO (16:44)
[2023-07-31] MEDS: proMETHazine 25 MG Tablet PO (16:45)
[2023-07-31 18:00] VITALS: BP 134/78; PULSE 64; RESP 14; O2SAT 98
== END 2023-07-31 18:20 | disposition home or self-care (01) ==
PROVIDERS: Emergency Provider Student in an Organized Health Care Education/Training Program; Visit Provider Student in an Organized Health Care Education/Training Program
DX: H81.10 Benign paroxysmal vertigo, unspecified ear (principal)
CPT/HCPCS: 71046; 99283

== ENCOUNTER 2024-04-12 21:31 | Emergency (ER) | payer OTHER, SELFPAY ==
[2024-04-12 21:32] VITALS: BP 120/75; PULSE 78; RESP 16; TEMP 36.3; O2SAT 98; BMI 39.6
[2024-04-12 22:19] LABS: Absolute Lymphocyte Count 5.09 X10^3/uL (0.83-4.51); Absolute Neutrophil Count 6.9 X10^3/uL (2.0-7.7); Basophil# 0.08 X10^3/uL; Basophil% 0.6 % (0-1); Eosinophils% 3.8 % (0-5); Hematocrit 42.7 % (37-47); Hemoglobin 14.4 g/dL (12.0-15.0); Lymphocyte # 5.09 X10^3/ul (0.83-4.51); Lymphocyte % 38.6 % (19-41); Mean Corp Hgb Conc 33.7 g/dL (32-36); Mean Corpuscular Hgb 29.8 pg (27.0-32.0); Mean Corpuscular Volume 88.4 fL (81-99); Mean Platelet Vol. 11.4 fl (6.2-12.0); Monocyte# 0.61 X10^3/uL; Monocyte% 4.6 % (0-10); NRBC Flagged by Analyzer 0 % (0-5); Neutrophil # 6.86 X10^3/uL (2.7-7.7); POSITIVE DIFFERENTIAL YES; Platelet Count 314 K/mm3 (150-450); RBC Distribution Width SD 39.1 fl (35.1-43.9); Red Blood Count 4.83 M/mm3 (4.2-5.4); White Blood Count 13.2 K/mm3 (4.4-11.0)
[2024-04-12 22:36] LABS: Differential Indicated SCAN CRITERIA MET
[2024-04-12 22:50] LABS: Alcohol, Blood (Medical)-Serum < 3.0 mg/dL
[2024-04-12 22:51] LABS: Anion Gap 8 (5-15); BUN 10 mg/dL (7-18); BUN/Creat Ratio 17.4 RATIO (10-20); Calcium,Total 10.2 mg/dL (8.5-10.1); Chloride 101 mmol/L (98-107); Creatinine, Serum 0.58 mg/dL (0.55-1.02); EST Glomerular Filtration Rate 134 mL/min (>60); Est Glom Filt Rate - Afr Amer 162 mL/min (>60); Glucose 160 mg/dL (74-106); Potassium 3.7 mmol/L (3.5-5.1); Sodium Level 135 mmol/L (136-145)
[2024-04-12 23:01] LABS: Amphetamine Urine VISTA NEGATIVE (<1000 ng/mL); Barbiturate Urine VISTA NEGATIVE (< 200 ng/mL); Benzodiazepine Urine VISTA NEGATIVE (< 200 ng/mL); Cocaine Urine VISTA NEGATIVE (< 300 ng/mL); Ecstacy Urine VISTA NEGATIVE (< 500 ng/mL); Methadone Urine VISTA NEGATIVE (< 300 ng/mL); PCP Urine VISTA NEGATIVE (< 25 ng/mL); THC Urine VISTA NEGATIVE (< 50 ng/mL); Vista UDS pH Range 5
--- NOTE | 2024-04-13 00:16 | EX.ED.VIS.PS ---
HPI HPI - Psych History of Present Illness Chief Complaint: Suicidal Detail of Chief Complaint: Depression with suicidal ideation and plan Informant: patient and parent Onset/Context/Timing Onset: Month(s) Context: Gradual Onset Conflict: Family, Work and Financial Timing: Continuous and Waxes and wanes Current Severity: Severe Maximum Severity: Severe Worsened by: Situational factors and Alcohol intoxication Relieved by: Nothing Associated Symptoms Associated Symptoms - Psych: Positive for Depressed, Change in Eating, Change in sleeping, Decreased Interest, Decreased Concentration and Suicidal Thoughts; Negative for Hopelessness, Easily distracted, Grandiosity, Flight of Ideas, Increased activity, Pressured Speech, Agitated, Angry, Hostile, Threatening, Confusion, Paranoia, Visual Hallucinations or Auditory Hallucinations 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 He is on testosterone. Is been on testosterone for the past 3 years. He does have a history of depression. He states he is taking his medication. He also has history of type 2 diabetes and hypertension and hypercholesterolemia. He has been depressed for some time. He is not a good informant. Mother supplemented. He has had trouble with sleep with hypersomnolence and insomnia and also his appetite is fluctuated with weight loss. He denies any problems with friends and family. He was told by his therapist to not go to work to decompress. Patient states he is never been hospitalized for depression. He is never attempted to harm himself in the past. Prior similar symptoms: Yes Recent Illness/Hospitalization: No PFSH PFSH Medical History Thyroid disorder Hypertension Diabetes Suicidal ideation Depression Anxiety History of PCOS Home Medications ?Medication ?Instructions ?Recorded ?Last Taken ?Type metformin 500 mg tablet 1,000 mg PO BID 02/03/15 Unknown History atorvastatin 40 mg tablet 40 mg PO DAILY 11/13/22 Unknown History hydrochlorothiazide 25 mg tablet 25 mg PO DAILY 11/13/22 Unknown History levothyroxine 50 mcg tablet 50 mcg PO DAILY 11/13/22 Unknown History lisinopril 20 mg tablet 20 mg PO BID 11/13/22 Unknown History sertraline 100 mg tablet 150 mg PO DAILY 11/13/22 Unknown History testosterone 200 mg implant pellet 200 mg subcut QWEEK 11/13/22 Unknown History tirzepatide 10 mg/0.5 mL 10.5 mg subcut QWEEK 04/12/24 Unknown History subcutaneous pen injector (Taty) trazodone 50 mg tablet 50 mg PO QHS PRN PRN insomnia 04/12/24 Unknown History Allergy/AdvReac Type Severity Reaction Status Date / Time latex Allergy Other Verified 04/12/24 21:35 red dye Allergy Hives Verified 04/12/24 21:35 Surgical History H/O total hysterectomy Social History Smoking Status: Never smoker ROS ROS ED Constitutional Constitutional ED: Denies chills, fever(s), subjective, sweats or weight loss Eyes Eyes: Denies blurry vision, change in vision or diplopia ENT ENT ED: Denies ear pain, rhinorrhea or sore throat Cardiovascular Cardiovascular: Denies chest pain, orthopnea, palpitations, paroxysmal nocturnal dyspnea or racing heartbeat Respiratory/Chest Respiratory/Chest: Denies cough, dyspnea, dyspnea on exertion, orthopnea or paroxysmal nocturnal dyspnea Gastrointestinal Gastrointestinal: Denies abdominal pain, constipation, nausea or vomiting Musculoskeletal Musculoskeletal: Denies arthralgias, back pain or myalgias Integumentary Denies rash Neurologic Neurologic: Reports weakness; Denies headache(s) or paresthesias Psychiatric Psychiatric: Reports anxiety, depression, suicidal ideation and suicidal thoughts Endocrine Endocrinology: Denies polydipsia or polyuria Hematologic/Lymphatic Hematologic/Lymphatic: Denies easy bleeding or easy bruising EXAM Physical Exam Const Vital Signs: 04/12/24 21:32 04/13/24 04:26 Temperature 97.3 F L 97.5 F L Temperature Source Temporal Pulse Rate 78 62 Respiratory Rate 16 18 Blood Pressure 120/75 119/75 Blood Pressure Mean 90 89 Pulse Ox 98 97 Oxygen Delivery Method Room Air Positive well nourished and well developed Constitutional Narrative: Female with typical appearance of male with facial hair. Affect is flat and mood is depressed. He is tearful. General Appearance ED: well developed and NAD; Negative for pallor HEENT Reports moist mucous membranes normocephalic and atraumatic Eyes PERRL and EOMs intact bilaterally General Eye ED: Negative for pale conjunctiva or scleral icterus Neck no lymphadenopathy, supple and no JVD Resp normal respiratory effort and clear to auscultation bilaterally Cardio S1 normal heart sound, S2 normal heart sound and no murmurs Rate: regular rate Rhythm: regular rhythm GI non-tender, non-distended and no masses Auscultation: normoactive bowel sounds Back/Spine no CVA tenderness Extremity normal to inspection General Extremety ED: Negative for edema or tenderness General Extremity: Negative for edema Neuro oriented x3, CN's II-XII intact bilaterally and no sensory deficits noted Hershey Coma Scale: document GCS findings Spontaneous Obeys Commands Oriented 15 Sensorium / Orientation: alert Psych denies suicidal ideation; Negative for denies homicidal ideation Appearance: grossly normal Attitude: withdrawn and evasive Activity / Motor Behavior: psychomotor slowing and avoids eye contact Speech: minimal, slow and soft Mood & Affect: depressed, tearful and flat affect Thought Process: normal thought process Thought Content: suicidality Attention / Concentration: attention grossly intact Memory / Cognition: memory grossly intact Insight: limited Judgement: limited Skin General Skin Exam: Negative for jaundice or pallor Lesions: no lesions Rashes: no rashes MDM MDM MDM Narrative Medical decision making narrative: Patient is depressed with suicidal thoughts and plan. Will have mental health see him. Mental health laboratory tests were obtained to assess for any metabolic or infectious cause. Since he has history of hypothyroidism TSH was obtained as well. In my opinion this is due to his chronic depression. Lab Data Attestation: I reviewed the patient's lab results. Lab results narrative: White count is elevated 13.2 thousand with no shift. Basic metabolic panel is unremarkable. Glucose is elevated 160 with normal CO2 anion gap. Talk screen is negative. Alcohol was nondetected. Labs: Laboratory Results - last 24 hr 04/12/24 21:45 WBC 13.2 H RBC 4.83 Hgb 14.4 Hct 42.7 MCV 88.4 MCH 29.8 MCHC 33.7 RDW Std Deviation 39.1 RDW Coeff of Luis 12.0 Plt Count 314 MPV 11.4 Immature Gran % (Auto) 0.400 Neut % (Auto) 52.0 Lymph % (Auto) 38.6 [place] % (Auto) 4.6 Eos % (Auto) 3.8 Baso % (Auto) 0.6 Absolute Neuts (auto) 6.9 Absolute Lymphs (auto) 5.09 H Nucleated RBC % 0 Sodium 135 L Potassium 3.7 Chloride 101 Carbon Dioxide 26.0 Anion Gap 8 BUN 10 Creatinine 0.58 Estim Creat Clear Calc 197.10 Est GFR (MDRD) Af Amer 162 Est GFR (MDRD) Non-Af 134 BUN/Creatinine Ratio 17.4 Glucose 160 H Calcium 10.2 H TSH 1.300 Urine Opiates Screen NEGATIVE Urine Methadone Screen NEGATIVE Ur Barbiturates Screen NEGATIVE Ur Phencyclidine Scrn NEGATIVE Ur Amphetamines Screen NEGATIVE MDMA (Ecstasy) Screen NEGATIVE U Benzodiazepines Scrn NEGATIVE Urine Cocaine Screen NEGATIVE U Cannabinoids Screen NEGATIVE Ur Drug Screen Comment Ethyl Alcohol < 3.0 TSH was normal. Treatment and Re-Evaluation Narrative: In my professional opinion patient is medically stable for admission to psychiatric facility. Discharge Plan Triage Chief Complaint: Suicidal ED Provider: Fer Clifton Dx/Rx/DC Orders Clinical Impression: Depression with suicidal ideation, Hx of type 2 diabetes mellitus, History of hypertension, History of hypothyroidism, History of hypercholesterolemia Prescriptions: No Action metformin 500 MG tablet 1,000 mg PO BID atorvastatin 40 mg Tablet 40 mg PO DAILY lisinopril 20 mg Tablet 20 mg PO BID sertraline 100 mg Tablet 150 mg PO DAILY levothyroxine 50 mcg Tablet 50 mcg PO DAILY hydrochlorothiazide 25 mg Tablet 25 mg PO DAILY testosterone 200 mg Pellet 200 mg SUBCUT QWEEK Mounjaro 10 mg/0.5 mL pen injector 10.5 mg subcut QWEEK trazodone 50 mg tablet 50 mg PO QHS PRN PRN (Reason: insomnia) Primary Care Provider: TEJAL VARGHESE Referrals: NOT,DEFINED [Non-Staff] - Print Language: [place] Disposition Disposition: Psychiatric Hospital or Unit Discharge Location: [facility]
[2024-04-13 04:26] VITALS: BP 119/75; PULSE 62; RESP 18; TEMP 36.4; O2SAT 97
[2024-04-13] MEDS: Levothyroxine 50 MCG Tablet PO (07:27)
== END 2024-04-13 08:43 ==
PROVIDERS: Emergency Provider Emergency Medicine; Visit Provider Emergency Medicine
DX: F32.A Depression, unspecified (principal); E11.9 Type 2 diabetes mellitus without complications; E78.00 Pure hypercholesterolemia, unspecified; R45.851 Suicidal ideations; I10 Essential (primary) hypertension; E03.9 Hypothyroidism, unspecified; Z79.899 Other long term (current) drug therapy; Z79.84 Long term (current) use of oral hypoglycemic drugs
CPT/HCPCS: 36415; 80048; 80307; 82077; 84443; 85025; 99284

== ENCOUNTER 2024-09-20 20:08 | Emergency (ER) | payer OTHER, SELFPAY ==
[2024-09-20 20:09] VITALS: BP 134/80; PULSE 77; RESP 18; TEMP 36.6; O2SAT 97; BMI 38.8
[2024-09-20 22:34] VITALS: BP 129/81; PULSE 89; RESP 14; O2SAT 100
--- NOTE | 2024-09-20 22:40 | ED.RN ---
mom stated that they were going to leave department since pt BP was within normal range. RN explained it was their right to do so and to return if things worse, or BP continues to rise. Pt has left department
== END 2024-09-20 22:38 | disposition left against medical advice (07) ==
LOC: ED 22:40
DX: Z53.21 Procedure and treatment not carried out due to patient leaving prior to being seen by health care provider (principal)